=== PATIENT | female | born 1940 | race Caucasian/White ===

== ENCOUNTER 2017-01-14 21:19 | Emergency (ER) | payer MEDICARE ==
[2017-01-14 20:17] LABS: BASOPHILS 0.3 %; BASOPHILS ABSOLUTE 0.02 10/3/uL (0.0-0.16); EOSINOPHILS 0.5 %; EOSINOPHILS ABSOLUTE 0.04 10/3/uL (0.0-0.53); ER CBC TAT 0 Hrs 15 Mins; HEMATOCRIT 41.4 % (36.0-48.0); HEMOGLOBIN 13.5 g/dL (12.0-16.0); IMMATURE GRANULOCYTES 0.4 %; IMMATURE GRANULOCYTES ABSOLUTE 0.03 10/3/uL (0.0-0.11); LYMPHOCYTES 14.1 %; LYMPHOCYTES ABSOLUTE 1.09 10/3/uL (0.67-4.30); MANUAL DIFF NO %; MEAN CORPUS HGB CONC 32.6 g/dL (32.0-36.0); MEAN CORPUSCULAR HEMOGLOB 29.4 pg (26.0-34.0); MEAN CORPUSCULAR VOLUME 90.2 fL (80-100); MEAN PLATELET VOLUME 8.6 fL (9.2-13.0); MONOCYTES 5.8 %; MONOCYTES ABSOLUTE 0.45 10/3/uL (0.21-1.20); NEUTROPHILS 78.9 %; NEUTROPHILS ABSOLUTE 6.08 10/3/uL (2.02-8.40); PLATELET COUNT 221 10/3/uL (150-400); RBC DISTRIBUTION WIDTH 15.1 % (12.0-16.0); RED CELL COUNT 4.59 10/6/uL (4.0-5.6); WHITE BLOOD CELLS 7.7 10/3/uL (4.5-10.5)
[2017-01-14 20:28] LABS: INTERNATIONAL NORMAL RATI 0.9 UNITS (-); PARTIAL THROMBO TIME 27.9 SEC (22.5-37.2); PROTIME (NOT ORD) 12.4 SEC (12.0-14.5)
[2017-01-14 20:32] LABS: BUN (BLOOD UREA NITROGEN) 13 MG/DL (6-23); CALCIUM, SERUM 8.9 MG/DL (8.5-10.4); CHEST PAIN PROFILE TAT 0 Hrs 30 Mins; CHLORIDE, SERUM 104 MMOL/L (96-112); CO2 (CARBON DIOXIDE) 27 MMOL/L (24-34); CREATININE 0.65 MG/DL (0.55-1.02); GFR AFRICAN AMERICAN 101 ML/MIN (>=60); GFR NON AFRICAN AMERICAN 87 ML/MIN (>=60); POTASSIUM, SERUM 4.5 MMOL/L (3.5-5.3); SODIUM, SERUM 141 MMOL/L (135-148); TROPONIN I <0.02 NG/ML (<0.05)
[2017-01-14 20:35] LABS: GLUCOSE, SERUM 97 MG/DL (60-99)
[~2017-01-14 21:19] MED LIST: ANSAID100 MG OR; ANSAID100 MG PO; ASA5GR PO; ASABAYER PO; CALCIUM OTC PO; CALCIUM PO; CENTRUM TAB1 TAB PO; CLARIT10 PO; COREG12 PO; COREG25 PO; COREG6 PO; COZ50 PO; COZAAR100 MG PO; CRESTOR5 MG PO; FISH OIL1200 MG PO; FISH-EPA1000 MG PO; FLAGIV500 IV; FLURBIPROFEN100 MG OR; FLURBIPROFEN100 MG PO; FOLIC PO; GLUCCHONDR PO; GLUCOSAMINEPO PO; LEVOTHYROXIN88 MCG PO; LISINOPRIL40 MG PO; LOP50 PO; MAGOX4; MAGOX4 PO; MAX25 PO; MEGA RED PO; MEGA-RED PO; MTX2.5 PO; MUCINEX1200 MG PO; MULTIPLE VIT PO; NATURE'S OP; NATURE'S OPH; NORV5 PO; OS500+D PO; P5 PO; PENICILLN VK500 MG PO; PREM625 PO; PREV30 PO; PRILO PO; PROAIR HFA INH; PROBIOTIC OTC PO; PROBIOTIC PO; RAN500 PO; SYN88 PO; SYSTANE OPH; THERGRANM PO; TREXALL5 MG PO; TUMSROLL PO; VITAMIN B-121000 MC1 SL; VITAMIN D PO; VITAMIN D1000 UNI1 PO; VITAMIN D31000 UNIT PO; ZANTAC PO; ZOCOR40 PO; ZOLOFT25 MG PO; [UNRECOGNIZED DRUG - OTHER] PO
[2017-01-14 21:49] LABS: ASCORBIC ACID (UR NOT ORDER) NEG (NEG); BILIRUBIN, URINE NEGATIVE (NEG); ER URINALYSIS TAT 0 Hrs 00 Mins; KETONE, URINE NEGATIVE (NEG); LEUKOCYTE ESTERASE(NOT OR SMALL (NEG); NITRITE (URINE) POS (NEG); WBC (NOT ORDERED) (RFLEX) 4 (0-5)
== END 2017-01-14 23:00 | disposition home or self-care (01) ==
LOC: ER 21:19
PROVIDERS: Emergency Medicine
DX: N39.0 Urinary tract infection, site not specified (principal); I11.0 Hypertensive heart disease with heart failure; I50.9 Heart failure, unspecified; K21.9 Gastro-esophageal reflux disease without esophagitis; K58.9 Irritable bowel syndrome, unspecified; D64.9 Anemia, unspecified; Z88.5 Allergy status to narcotic agent; Z88.1 Allergy status to other antibiotic agents; Z79.899 Other long term (current) drug therapy
CPT/HCPCS: 71020; 80048; 81001; 83735; 84484; 85025; 85610; 85730; 87077; 87086; 87186; 93005; 96374; 99284; A9270-GY; J0360

== ENCOUNTER 2017-03-22 12:23 | Emergency (ER) | payer MEDICARE ==
[2017-03-22 11:52] LABS: BASOPHILS 0.4 %; BASOPHILS ABSOLUTE 0.04 10/3/uL (0.0-0.16); EOSINOPHILS 1.5 %; EOSINOPHILS ABSOLUTE 0.14 10/3/uL (0.0-0.53); IMMATURE GRANULOCYTES ABSOLUTE 0.09 10/3/uL (0.0-0.11); LYMPHOCYTES 13.5 %; LYMPHOCYTES ABSOLUTE 1.23 10/3/uL (0.67-4.30); MEAN CORPUS HGB CONC 32.8 g/dL (32.0-36.0); MEAN CORPUSCULAR HEMOGLOB 30.2 pg (26.0-34.0); MEAN CORPUSCULAR VOLUME 92.2 fL (80-100); MEAN PLATELET VOLUME 8.8 fL (9.2-13.0); MONOCYTES 6.5 %; MONOCYTES ABSOLUTE 0.59 10/3/uL (0.21-1.20); NEUTROPHILS 77.1 %; NEUTROPHILS ABSOLUTE 7.05 10/3/uL (2.02-8.40); PLATELET COUNT 169 10/3/uL (150-400); RBC DISTRIBUTION WIDTH 15.7 % (12.0-16.0); RED CELL COUNT 3.97 10/6/uL (4.0-5.6); WHITE BLOOD CELLS 9.1 10/3/uL (4.5-10.5)
[2017-03-22 11:54] LABS: HEMATOCRIT 36.6 % (36.0-48.0); MANUAL DIFF NO %
[2017-03-22 12:00] LABS: PARTIAL THROMBO TIME 25.1 SEC (22.5-37.2); PROTIME (NOT ORD) 13.1 SEC (12.0-14.5)
[2017-03-22 12:07] LABS: BUN (BLOOD UREA NITROGEN) 16 MG/DL (6-23); CALCIUM, SERUM 9.4 MG/DL (8.5-10.4); CHEST PAIN PROFILE TAT 0 Hrs 19 Mins; CHLORIDE, SERUM 108 MMOL/L (96-112); CO2 (CARBON DIOXIDE) 25 MMOL/L (24-34); CREATININE 0.72 MG/DL (0.55-1.02); GFR AFRICAN AMERICAN 95 ML/MIN (>=60); GFR NON AFRICAN AMERICAN 82 ML/MIN (>=60); GLUCOSE, SERUM 97 MG/DL (60-99); POTASSIUM, SERUM 3.8 MMOL/L (3.5-5.3); SODIUM, SERUM 142 MMOL/L (135-148); TROPONIN I <0.02 NG/ML (<0.05)
[2017-03-22 12:51] LABS: ASCORBIC ACID (UR NOT ORDER) NEG (NEG); BILIRUBIN, URINE NEGATIVE (NEG); KETONE, URINE NEGATIVE (NEG); LEUKOCYTE ESTERASE(NOT OR SMALL (NEG); NITRITE (URINE) POS (NEG); WBC (NOT ORDERED) (RFLEX) 2 (0-5)
== END 2017-03-22 14:00 | disposition home or self-care (01) ==
LOC: ER 12:23
PROVIDERS: Emergency Medicine
DX: R60.0 Localized edema (principal); M79.1 Myalgia; R53.83 Other fatigue; M19.90 Unspecified osteoarthritis, unspecified site; I25.10 Atherosclerotic heart disease of native coronary artery without angina pectoris; Z88.5 Allergy status to narcotic agent; Z88.1 Allergy status to other antibiotic agents; Z88.8 Allergy status to other drugs, medicaments and biological substances; Z79.82 Long term (current) use of aspirin; Z79.899 Other long term (current) drug therapy
CPT/HCPCS: 71020; 73552-LT; 73590-LT; 80048; 81001; 83735; 83880; 84484; 85025; 85610; 85730; 87077; 87086; 87186; 93971; 96372; 99285